=== PATIENT | female | born 1980 | race Caucasian/White ===

== ENCOUNTER 2024-03-20 17:00 | Emergency (ER) | payer MEDICAID ==
[2024-03-20] MEDS: Orphenadrine 60 MG/2 ML Inj IM ONE (17:59)
[2024-03-20] MEDS: Lidocaine 4% 1 each Patch TOP STA (17:59)
[2024-03-20] MEDS: Ketorolac 30 MG/ML SDV IM ONE (18:02)
[2024-03-20 18:12] LABS: APPEARANCE,URINE CLEAR; BILIRUBIN,URINE NEGATIVE (NEGATIVE); COLOR,URINE YELLOW; GLUCOSE,URINE NEGATIVE (NEGATIVE); KETONES,URINE NEGATIVE (NEGATIVE); LEUKOCYTE ESTERASE,URINE NEGATIVE (NEGATIVE); NITRITE,URINE NEGATIVE (NEGATIVE); OCCULT BLOOD,URINE NEGATIVE (NEGATIVE); PROTEIN,URINE NEGATIVE (NEGATIVE); UROBILINOGEN,URINE 0.2 EU/dL (<2.0)
== END 2024-03-20 20:41 | disposition home or self-care (01) ==
LOC: MW.ED 17:00
DX: M54.50 Low back pain, unspecified (principal); E11.9 Type 2 diabetes mellitus without complications; Z79.4 Long term (current) use of insulin; Z79.899 Other long term (current) drug therapy; Z88.5 Allergy status to narcotic agent; Z88.8 Allergy status to other drugs, medicaments and biological substances; Z75.8 Other problems related to medical facilities and other health care
CPT/HCPCS: 72128; 72131; 81003; 81025; 96372; 99284; A9270; J1885; J2360